=== PATIENT | female | born 1975 | race Caucasian/White ===

== ENCOUNTER 2016-05-07 09:01 | Day surgery (SDC) | payer OTHER ==
[2016-05-06 11:31] VITALS: BMI 20.9
[2016-05-07] VITALS (12 sets, daily range): BP systolic 110–139; BP diastolic 56–68; PULSE 66–84; RESP 13–25; Ht 165.1 cm; Wt 150.0 kg
[~2016-05-07] VITALS: Ht 165.1 cm; Wt 150.0 kg
[~2016-05-07 09:01] MED LIST: CEFAZOLIN 1 GM INJ ONE; CEFAZOLIN 2 GM/50 ML (PMX) 50 ML IVPB ONE; LACTATED RINGER'S 1,000 ML IV* SCH; LANT3I SC
--- NOTE | 2016-05-07 09:25 | HPN ---
Date/Time of Note Date/Time of Note DATE: 05/07/16 TIME: 09:24 Interval H&P Admission Note Pt. seen H&P reviewed: No system changes WILLIE ROSS May 07, 2016 09:25
[2016-05-07] MEDS ORDERED: MEDR10TA2 PO (09:50)
[2016-05-07] MEDS ORDERED: INSU200I SQ (09:50)
[2016-05-07] MEDS ORDERED: LISI10TA2 PO (09:51)
[2016-05-07] MEDS ORDERED: GABA300C16 PO (09:51)
[2016-05-07] MEDS ORDERED: TRAM-40 PO (09:52)
[2016-05-07] MEDS ORDERED: LEVO100T82 PO (09:52)
[2016-05-07] MEDS ORDERED: CYCL-319 PO (09:53)
[2016-05-07] MEDS ORDERED: DICL75TA2 PO (09:53)
[2016-05-07] MEDS ORDERED: METF-388 PO (09:54)
[2016-05-07] MEDS ORDERED: BUPR-34 PO (09:54)
[2016-05-07] MEDS ORDERED: ATOR40TA68 PO (09:55)
[2016-05-07] MEDS ORDERED: LANT3I SC (09:55)
[2016-05-07 11:02] LABS: INR 1.03; PROTIME 13.5 Sec (12.2-14.2); PT RATIO 1.1
[2016-05-07 11:03] LABS: PARTIAL THROMBOPLASTIN TIME 26.7 Sec (25.0-35.0)
[2016-05-07 11:11] LABS: BASOPHILS % 0.6 % (0.0-2.0); EOSINOPHILS # 0.2 10^3/ul (0.0-0.5); EOSINOPHILS % 2.8 % (0.0-7.0); HEMATOCRIT 36.5 % (37.0-47.0); HEMOGLOBIN 12.2 g/dl (12.0-16.0); LYMPHOCYTES # 2.7 10^3/ul (0.8-2.9); LYMPHOCYTES % 35.3 % (15.0-51.0); MEAN CORPUSCULAR HEMOGLOBIN 28.5 pg (29.0-33.0); MEAN CORPUSCULAR HGB CONC 33.3 g/dl (32.0-37.0); MEAN CORPUSCULAR VOLUME 85.6 fl (82.0-101.0); MEAN PLATELET VOLUME 7.4 fl (7.4-10.4); MONOCYTE # 0.4 10^3/ul (0.3-0.9); MONOCYTES % 5.4 % (0.0-11.0); NEUTROPHIL # 4.3 10^3/ul (1.6-7.5); NEUTROPHILS % 55.9 % (39.0-77.0); PLATELET COUNT 313 10^3/UL (140-440); RED BLOOD COUNT 4.26 10^6/ul (4.20-5.40); RED CELL DISTRIBUTION WIDTH 14.7 % (11.5-14.5); UNCORRECTED WBC 7.7 10^3/ul (4.8-10.8); WHITE BLOOD COUNT 7.7 10^3/ul (4.8-10.8)
[2016-05-07 11:22] LABS: CALCIUM 8.6 mg/dl (8.4-10.2); CREATININE 0.6 mg/dl (0.44-1.00); POTASSIUM 4.2 mmol/L (3.5-5.1)
[2016-05-07 11:24] LABS: CONDITION 1; LH ANALYZER COMMENTS 1
[2016-05-07] MEDS ORDERED: BUPIVACAINE 0.5% (SDV) 30 ML INJ ONE (11:56)
[2016-05-07] MEDS ORDERED: PROPOFOL 100 ML ONE (12:02)
[2016-05-07] MEDS ORDERED: FAMOTIDINE 20 MG INJ ONE (12:11)
[2016-05-07] MEDS ORDERED: METOCLOPRAMIDE 10 MG INJ ONE (12:12)
[2016-05-07] MEDS ORDERED: ONDANSETRON 4 MG INJ IV PRN (12:30)
[2016-05-07] MEDS ORDERED: hydrALAzine 20 MG INJ IV PRN (12:30)
[2016-05-07] MEDS ORDERED: MEPERIDINE 25 MG INJ IV PRN (12:30)
[2016-05-07] MEDS ORDERED: LABETALOL HCL 20MG INJ IV PRN (12:30)
[2016-05-07] MEDS ORDERED: FENTAnyl 50 MCG/ML VIAL IV PRN ×2 (12:30)
[2016-05-07] MEDS ORDERED: METOCLOPRAMIDE 10 MG INJ IV PRN (12:30)
[2016-05-07] MEDS ORDERED: HYDROmorphONE (0.2 MG/ML) 10ML SYG IV PRN ×3 (12:30)
[2016-05-07] MEDS ORDERED: DEXAMETHASONE 4 MG/ML 1 ML INJ ONE (12:41)
[2016-05-07] MEDS ORDERED: ONDANSETRON 4 MG INJ ONE (12:42)
[2016-05-07] MEDS ORDERED: KETOROLAC 30 MG INJ ONE (12:48)
[2016-05-07] MEDS: FENTAnyl 50 MCG/ML VIAL IV PRN ×2 (13:18→13:26)
--- NOTE | 2016-05-07 15:52 | OPR ---
DATE OF OPERATION: 05/07/2016 SURGEON: Dr. Toledo ANESTHESIA: General. PREOPERATIVE DIAGNOSES: 1. Left hand mass. 2. Left carpal tunnel syndrome. POSTOPERATIVE DIAGNOSES: 1. Left hand mass, 1 x 1 cm. 2. Left carpal tunnel syndrome. PROCEDURE: 1. Excision of the deep mass, left hand, measuring 1 x 1 cm. 2. Left carpal tunnel release, open. OPERATIVE FINDINGS: 1. Compression of median nerve at the carpal tunnel and thickening of the transverse carpal ligamen t. 2. Vascular-appearing mass at the left hand, measuring 1cm x 1 cm. INDICATIONS FOR PROCEDURE: This is a 40-year-old female who had longstanding left hand pain. She w as diagnosed with carpal tunnel syndrome and also had a mass in her left hand which was quite painfu l. She elected to proceed with carpal tunnel release and excision of the mass, understanding the ri sks and benefits. DESCRIPTION OF PROCEDURE: The patient was seen in the preoperative area and all further questions w ere answered. Again, she gave informed consent, understanding the risks and benefits. She was take n to the operative suite and placed in the supine position. She was placed under general anesthesia , and a tourniquet was placed on the left lower extremity. Left upper extremity was prepped with Ch loraPrep stick and draped in the usual sterile fashion. Two grams of Ancef was administered. An Es march bandage was used to exsanguinate the extremity and the tourniquet was inflated to 260 mmHg. A ttention was first turned to the carpal tunnel release and sharp dissection was carried down through the skin and subcutaneous tissue. The base of the palm, with an incision measuring approximately 3 cm. Center retractors were placed and the palmar aponeurosis was identified and was incised along its ulnar border. The retractors were deepened and the transverse carpal ligament was identified an d was incised approximately 3 mm radial to the hook of the hamate. A curved hemostat was used to sp read distally and a retractor placed. The distal extent of the transverse carpal ligament was divided under direct visualization. Attention was then turned proximally and scissor dissection was used to try to divide the antebrachi al fascia off the transverse carpal ligament. A regular retractor was placed proximally and the tra nsverse carpal ligament was divided along its ulnar aspect under direct visualization. After I was pleased with the complete release of the transverse carpal ligament the wound was copiously irrigate d and the skin closed with 4-0 nylon. Attention was then turned to the mass in the palm near the level of the distal palmar crease. A zig zag incision was utilized with sharp dissection, carried down through the skin and subcutaneous tiss ue. The tissue underlying the deep dermal surface was carefully dissected away and a distinct mass was identified, which appeared to be vascular in nature. It was removed en bloc. The specimen was sent for pathology. I palpated the area and there was no further mass. The wound was copiously irr igated and the skin closed with 4-0 nylon. Xeroform was placed, followed by sterile gauze, Webril, and a bias soft bandage. The tourniquet was deflated after 18 minutes and the patient was awakened from anesthesia. She was taken the postoperative suite in stable condition, having tolerated the pr ocedure well, without complication. SPECIMENS: Left hand mass. ESTIMATED BLOOD LOSS: 5 mL. Sponge, instrument and needle counts were correct. TOURNIQUET TIME: 18 minutes. CONDITION ON DISCHARGE: Stable. Dictated By: WILLIE CHICAS/RICKI Conf#: [id number] DID#: [id number]
== END 2016-05-07 15:25 | disposition home or self-care (01) ==
LOC: SDS 09:01
PROVIDERS: ATTEND Orthopaedic Surgery Hand Surgery
DX: G56.02 Carpal tunnel syndrome, left upper limb (principal); I82.890 Acute embolism and thrombosis of other specified veins; L98.8 Other specified disorders of the skin and subcutaneous tissue; E11.9 Type 2 diabetes mellitus without complications
CPT/HCPCS: 11422; 64721; 80048; 82962; 84703; 85025; 85610; 85730; 88307; J0690; J1100; J1885; J2175; J2405; J2765; J3010; Z7512; Z7610

== ENCOUNTER 2016-10-07 01:37 | Emergency (ER) | payer OTHER ==
[~2016-10-07] VITALS: Ht 170.2 cm; Wt 157.7 kg
[~2016-10-07 01:37] MED LIST changes: +ATOR40TA68 PO; +BUPR-34 PO; -CEFAZOLIN 1 GM INJ ONE; -CEFAZOLIN 2 GM/50 ML (PMX) 50 ML IVPB ONE; +CYCL-319 PO; +DICL75TA2 PO; +GABA300C16 PO; +INSU200I SQ; -LACTATED RINGER'S 1,000 ML IV* SCH; +LEVO100T82 PO; +LISI10TA2 PO; +MEDR10TA2 PO; +METF1000 PO; +TRAM-40 PO
[2016-10-07 01:50] VITALS: Ht 170.2 cm; Wt 157.7 kg
[2016-10-07] MEDS ORDERED: HYDROCODONE/APAP (10/325) TAB PO ONE (03:00)
--- NOTE | 2016-10-07 03:28 | ERD ---
ER Documentation Chief Complaint Date/Time DATE: 10/07/16 TIME: 03:26 Chief Complaint GARCIA x 3 hours [employer], +nausea, -vomit HPI This 41-year-old female presents here in emergency department for complaints of headache, neck pain, upper back pain and nausea started 3 hours prior to arrival. Patient was laying down in the sofa, when she got up, started to have the pain. Patient is morbidly obese, also has history of diabetes. Patient also has history of neuropathic pain. Patient described the pain as sharp pain, 6/10 scale, radiates from the head to the neck to the upper back area. Patient states is worse off and movement. Patient does any trauma on affected area. ROS All systems reviewed and are negative except as per history of present illness. Medications Home Meds Active Scripts Cyclobenzaprine Hcl* (Cyclobenzaprine Hcl*) 10 Mg Tablet, 10 MG PO TID, #15 TAB Prov:JEAN CLAUDE BUCKLEY SENIOR EXECUTIVE ASSISTANT 10/07/16 Ibuprofen* (Motrin*) 600 Mg Tab, 600 MG PO Q6H Y for PAIN AND OR ELEVATED TEMP, #30 TAB Prov:JEAN CLAUDE BUCKLEY SENIOR EXECUTIVE ASSISTANT 10/07/16 Hydrocodone/Acetaminophen ([place] 10-325 Tablet) 1 Each Tablet, 1 TAB PO Q6H Y for SEVERE PAIN LEVEL 7-10, #20 TAB Prov:JEAN CLAUDE BUCKLEY SENIOR EXECUTIVE ASSISTANT 10/07/16 Reported Medications Atorvastatin* (Atorvastatin*) 40 Mg Tablet, 40 MG PO QHS, #30 TAB 05/07/16 Insulin Glargine* (Lantus*) 100 Unit/Ml Soln, 55 UNIT SC QHS, #1 VIAL 05/07/16 Metformin Hcl* (Metformin Hcl*) 1,000 Mg Tablet, 1000 MG PO WITH BREAKFAST DINNE , #30 TAB 05/07/16 Bupropion Hcl* (Wellbutrin SR*) 150 Mg Tablet.sa, 150 MG PO BID, TAB.SA 05/07/16 Diclofenac Sodium* (Diclofenac Sodium*) 75 Mg Tablet.dr, 75 MG PO BID, #60 TAB 05/07/16 Cyclobenzaprine Hcl* (Cyclobenzaprine Hcl*) 10 Mg Tablet, 10 MG PO BID Y for MUSCLE SPASMS, #60 TAB 05/07/16 Tramadol Hcl* (Ultram*) 50 Mg Tablet, 50 MG PO Q6H Y for PAIN, TAB 05/07/16 Levothyroxine Sodium* (Levoxyl*) 100 Mcg Tablet, 100 MCG PO BEFORE BREAKFAST, # 30 TAB 05/07/16 Gabapentin* (Gabapentin*) 300 Mg Capsule, 300 MG PO QHS, #60 CAP 05/07/16 Lisinopril* (Lisinopril*) 10 Mg Tablet, 10 MG PO DAILY, #30 TAB 05/07/16 Insulin Lispro (Humalog Kwikpen) 200 Unit/1 Ml Insuln.pen, 15 UNIT SQ AC MEALS, EA 05/07/16 Medroxyprogesterone Acetate* (Provera*) 10 Mg Tablet, 10 MG PO DAILY, TAB DAYS 1-10 05/07/16 Allergies Allergies: Coded Allergies: No Known Allergy (Unverified , 05/07/16) PMhx/Soc History of Surgery: Yes (left hand, hysterecomy) Anesthesia Reaction: No Hx Neurological Disorder: No Hx Respiratory Disorders: No Hx Cardiac Disorders: No Hx Psychiatric Problems: No Hx Miscellaneous Medical Probl: Yes (DM, migraine, sciatica) Hx Alcohol Use: No Hx Substance Use: No Hx Tobacco Use: No Smoking Status: Never smoker FmHx Family History: No coronary disease, No diabetes, No other Physical Exam Vitals Vital Signs Date Time Temp Pulse Resp B/P Pulse Ox O2 Delivery O2 Flow Rate FiO2 10/07/16 04:27 77 99 Room Air 10/07/16 01:50 98.3 107 18 146/91 96 Physical Exam GENERAL: The patient is well developed and appropriate for usual state of health, in no apparent distress. CHEST: Clear to auscultation bilaterally. There are no rales, wheezes or rhonchi. HEART: Regular rate and rhythm. No murmurs, clicks, rubs or gallops. No S3 or S4. ABDOMEN: Soft, nontender and nondistended. Good bowel sounds. No rebound or guarding. No gross peritonitis. No gross organomegaly or masses. No Maldonado sign or McBurney point tenderness. BACK: No midline or flank tenderness. Muscle spasms noted in the paraspinal aspect of the cervical, upper back spine, EXTREMITIES: Equal pulses bilaterally. There is no peripheral clubbing, cyanosis or edema. No focal swelling or erythema. Full range of motion. Grossly neurovascularly intact. NEURO: Alert and oriented. Cranial nerves 2-12 intact. Motor strength in all 4 extremities with 5/5 strength. Sensation grossly intact. Normal speech and gait. Negative Romberg sign. Negative pronator drift. SKIN: There is no apparent rash or petechia. The skin is warm and dry. HEMATOLOGIC AND LYMPHATIC: There is no evidence of excessive bruising or lymphedema. No gross cervical, axillary, or inguinal lymphadenopathy. Results 24 hrs Laboratory Tests Test 10/07/16 04:32 Bedside Glucose 173mg/dL Current Medications Medications (Trade) Dose Ordered Sig/Missael Route PRN Reason Start Time Stop Time Status Last Admin Dose Admin Acetaminophen/ Hydrocodone Bitart ([place] (81862)) 1 tab ONCE ONCE PO 10/07/16 03:00 10/07/16 03:01 DC 10/07/16 03:46 Patient was given medication for pain here in emergency department, after treatment, patient verbalized feeling much better. Patient's pain is improved. PROCEDURE: Noncontrast CT Head. CLINICAL INDICATION: Headache TECHNIQUE: Noncontrast CT of the head was obtained. The administered radiation dose was CTDI vol = 45 mGy, DLP = 720 mGy-cm. COMPARISON: No pertinent prior examinations were submitted for comparison. FINDINGS: The ventricles and sulci are within normal limits. There is no acute intracranial hemorrhage or extra-axial fluid collection. There is no mass effect. No midline shift is identified. There is no loss of shin-white differentiation to suggest acute infarction. The orbits are within normal limits. The paranasal sinuses and mastoid air cells are without fluid. No destructive osseous lesion is identified. IMPRESSION: No acute findings. RPTAT: HIKT .Kenneth Santacruz MD, Date Time Electronically viewed and signed by .Kenneth Santacruz MD, on 10/07/2016 03:42 .T/ CC: JEAN CLAUDE BUCKLEY NP PROCEDURE: CT Cervical Spine without contrast. CLINICAL INDICATION: Trauma TECHNIQUE: Noncontrast CT of the cervical spine was performed with axial images. Coronal and sagittal images were also performed. The administered radiation dose was CTDI vol = 22 mGy, DLP = 571 mGy-cm. COMPARISON: There are no similar studies submitted for comparison. FINDINGS: Visualization of the [id number]-[id number] cervical spine is slightly limited by body habitus. Vertebral body stature and alignment are maintained. No acute fracture or subluxation is identified. The paravertebral and paraspinous soft tissues are unremarkable. IMPRESSION: No acute fracture or subluxation. RPTAT: HIKT .Kenneth Santacruz MD, MD Date Time Electronically viewed and signed by .Kenneth Santacruz MD, MD on 10/07/2016 03:44 .T/ CC: JEAN CLAUDE BUCKLEY SENIOR EXECUTIVE ASSISTANT Procedures/MDM Medical Decision Making: Patient's pain is most likely consistent with a back strain, neck strain. There is no suspicion for neurovascular compromise. Patient has intact sensation and circulation of the affected extremity and distal extremities. No incontinence, no suspicion for cauda equina syndrome, no saddle anesthesia, no symptoms of any acute bacterial infection, no symptoms of any perirectal abscesses, pilonidal cyst.There is low suspicion for septic arthritis. Patient does not have any fever. No symptoms of any aortic dissection or aortic aneurysm. Radiology exam not indicated at this time. Patient's symptoms of headache are consistent with migraine headache, possible tension headache. There is low suspicion for neurological emergencies at this time since patients neurologic exam is normal. Patient did not have any altered level consciousness, vomiting, changes in balance or memory and did not have any head injury. Patients CT scan of the head does not show any neurological emergencies at this time. Disposition: Home. Patient is given prescription for ibuprofen for mild to moderate pain, [place] for severe pain, Flexeril for muscle spasm. Patient was advised to avoid heavy lifting , apply warm compresses on affected area. Patient was advised that if symptoms are worse, numbness, tingling, high fever, unable to move joint, worsening symptoms, to return to emergency department immediately. Otherwise, patient is advised to follow up with the primary care doctor in 5-7 days for reevaluation of symptoms. Departure Diagnosis: Primary Impression: Headache Headache type: unspecified Headache chronicity pattern: acute headache Intractability: not intractable Qualified Code: R51 - Acute nonintractable headache, unspecified headache type Additional Impressions: Back pain Back pain location: thoracic back pain Chronicity: acute Back pain laterality: bilateral Qualified Code: M54.6 - Acute bilateral thoracic back pain Neck strain Encounter type: initial encounter Qualified Code: S16.1XXA - Neck strain, initial encounter Condition: Stable Patient Instructions: Back Pain W/ Sciatica, Neck Sprain/Strain, Self-Care for Headaches Additional Instructions: Patient is given prescription for ibuprofen for mild to moderate pain, [place] for severe pain, Flexeril for muscle spasm. Patient was advised to avoid heavy lifting , apply warm compresses on affected area. Patient was advised that if symptoms are worse, numbness, tingling, high fever, unable to move joint, worsening symptoms, to return to emergency department immediately. Otherwise, patient is advised to follow up with the primary care doctor in 5-7 days for reevaluation of symptoms. JEAN CLAUDE BUCKLEY NP Oct 07, 2016 03:28
--- NOTE | 2016-10-07 03:42 | RADRPT ---
PROCEDURE: Noncontrast CT Head. CLINICAL INDICATION: Headache TECHNIQUE: Noncontrast CT of the head was obtained. The administered radiation dose was CTDI vol = 45 mGy, DLP = 720 mGy-cm. COMPARISON: No pertinent prior examinations were submitted for comparison. FINDINGS: The ventricles and sulci are within normal limits. There is no acute intracranial hemorrhage or ext ra-axial fluid collection. There is no mass effect. No midline shift is identified. There is no loss of shin-white differentiation to suggest acute infarction. The orbits are within normal limits. The paranasal sinuses and mastoid air cells are without fluid. No destructive osseous lesion is identified. IMPRESSION: No acute findings. RPTAT: HIKT .Kenneth Santacruz MD, MD Date Time Electronically viewed and signed by .Kenneth Santacruz MD, on 10/07/2016 03:42 .T/
--- NOTE | 2016-10-07 03:44 | RADRPT ---
PROCEDURE: CT Cervical Spine without contrast. CLINICAL INDICATION: Trauma TECHNIQUE: Noncontrast CT of the cervical spine was performed with axial images. Coronal and sagitta l images were also performed. The administered radiation dose was CTDI vol = 22 mGy, DLP = 571 mGy- cm. COMPARISON: There are no similar studies submitted for comparison. FINDINGS: Visualization of the [id number] cervical spine is slightly limited by body habitus. Vertebral bod y stature and alignment are maintained. No acute fracture or subluxation is identified. The paraver tebral and paraspinous soft tissues are unremarkable. IMPRESSION: No acute fracture or subluxation. RPTAT: HIKT .Kenneth Santacruz MD, MD Date Time Electronically viewed and signed by .Kenneth Santacruz MD, on 10/07/2016 03:44 .T/
--- NOTE | 2016-10-07 04:10 | RADRPT ---
PROCEDURE: CT Thoracic Spine without contrast. CLINICAL INDICATION: Trauma TECHNIQUE: Noncontrast CT of the thoracic spine was performed with axial images. Coronal and sagitta l images were also performed. The administered radiation dose was CTDI vol = 38 mGy, DLP = 1615 mG y-cm. COMPARISON: There are no similar studies submitted for comparison. FINDINGS: Vertebral body stature and alignment are maintained. No acute fracture or subluxation is identified. The paravertebral and paraspinous soft tissues are unremarkable. IMPRESSION: No acute fracture or subluxation. RPTAT: HIKT .Kenneth Santacruz MD, MD Date Time Electronically viewed and signed by .Kenneth Santacruz MD, on 10/07/2016 04:09 .T/
[2016-10-07] MEDS ORDERED: IBUP-1542 PO (04:16)
[2016-10-07] MEDS ORDERED: CYCL-319 PO (04:16)
[2016-10-07] MEDS ORDERED: HYDR-902 PO (04:16)
[2016-10-07 04:27] VITALS: PULSE 77
== END 2016-10-07 04:35 | disposition home or self-care (01) ==
LOC: FTE 01:37
DX: R51 Headache (principal); M54.6 Pain in thoracic spine; S16.1XXA Strain of muscle, fascia and tendon at neck level, initial encounter; E11.9 Type 2 diabetes mellitus without complications; E66.01 Morbid (severe) obesity due to excess calories; X58.XXXA Exposure to other specified factors, initial encounter; Y92.9 Unspecified place or not applicable; Z68.43 Body mass index [BMI] 50.0-59.9, adult; Z79.4 Long term (current) use of insulin; Z79.84 Long term (current) use of oral hypoglycemic drugs
CPT/HCPCS: 70450; 72125; 72128; 82962; Z7502; Z7610